=== PATIENT | male | born 1990 | race Caucasian/White ===

== ENCOUNTER 2017-01-06 13:43 | Emergency (ER) | payer BC ==
[2017-01-06] MEDS ORDERED: Ibuprofen TAB* 800 MG PO ONE (18:34)
--- NOTE | 2017-01-06 18:48 | ED ---
Lower Extremity - HPI Summary HPI Summary: Pt here w/ Lt foot pain. Believes he injured it last night while intoxicated - vaguely recalls something happening to it but ot quite sure of mechanism. "Passed out" last night and noticed pain upon waking this morning. Pain w/ weight bearing - red, swollen. Denies ankle pain, toe pain and no other injuries or areas of pain to report. Denies numbness, tingling, weakness. Has not tried anything for pain prior to arrival. - History of Current Complaint Chief Complaint: EDExtremityLower Stated Complaint: LT FOOT INJURY Time Seen by Provider: 01/06/17 18:20 Hx Obtained From: Patient Pain Intensity: 10 - Allergies/Home Medications Allergies/Adverse Reactions: Allergies Allergy/AdvReac Type Severity Reaction Status Date / Time No Known Allergies Allergy Verified 01/06/17 18:41 PMH/Surg Hx/FS Hx/Imm Hx Previously Healthy: Yes Endocrine/Hematology History: Denies: Hx Anticoagulant Therapy, Hx Blood Disorders Musculoskeletal History: Denies: Hx Gout, Hx Orthopedic Injury, Hx Osteoporosis, Hx Tendonitis, Hx of Fracture(s) Infectious Disease History: No Infectious Disease History: Denies: Traveled Outside the [place] in Last 30 Days - Family History Known Family History: Positive: Cardiac Disease - Social History Occupation: Employed Full-time Lives: With Family - roommate Alcohol Use: Weekly Hx Substance Use: No Substance Use Type: Reports: None Hx Tobacco Use: Yes Smoking Status (MU): Current Every Day Smoker Amount Used/How Often: 1PPD Review of Systems Constitutional: Negative Negative: Fever, Chills Negative: Chest Pain Negative: Shortness Of Breath Negative: Vomiting, Nausea Positive: no symptoms reported Musculoskeletal: Other - see HPI Positive: Bruising - see HPI Neurological: Negative Psychological: Normal All Other Systems Reviewed And Are Negative: Yes Physical Exam Triage Information Reviewed: Yes Vital Signs On Initial Exam: Initial Vitals Temp Pulse Resp BP Pulse Ox 98.6 F 96 18 129/92 97 01/06/17 13:58 01/06/17 13:58 01/06/17 13:58 01/06/17 13:58 01/06/17 13:58 Vital Signs Reviewed: Yes Appearance: Positive: Well-Appearing, Well-Nourished, Pain Distress - mild at rest - worse w/ movement Skin: Positive: Warm, Dry - erythema/ecchymosis over Lt medial/instep of foot and dorsal aspect Eyes: Positive: EOMI ENT: Positive: Hearing grossly normal Respiratory/Lung Sounds: Positive: Breath Sounds Present Cardiovascular: Positive: Normal, Pulses are Symmetrical in both Upper and Lower Extremities Musculoskeletal: Positive: Strength/ROM Intact - ankle, knee, hip w/o pain, restriction, Limited @ - can move toes but hurts, Pain @ - Lt foot TTP over erythema and edema along medial and dorsal aspects of foot Neurological: Positive: Normal, Sensory/Motor Intact, Alert, Oriented to Person Place, Time, CN Intact II-III Psychiatric: Positive: Normal Diagnostics - Vital Signs Vital Signs Temp Pulse Resp BP Pulse Ox 01/06/17 17:54 98.6 F 92 18 124/88 99 01/06/17 15:30 98.6 F 92 18 124/88 99 01/06/17 13:58 98.6 F 96 18 129/92 97 - Laboratory Lab Statement: Any lab studies that have been ordered have been reviewed, and results considered in the medical decision making process. Lower Extremity Course/Dx - Diagnoses Provider Diagnoses: Sprain of left foot, Contusion of left foot Discharge - Discharge Plan Condition: Stable Disposition: HOME Patient Education Materials: Foot Sprain (ED), Contusion in Adults (ED), Crutch Instructions (ED) Referrals: [facility] [place] [facility] [Outside] Additional Instructions: Rest, ice, compression with HERSON wrap and elevation Use crutches to avoid weight bearing until tolerated You may take ibuprofen 600mg every 6 hours with food as needed for pain, swelling. Follow-up with PCP in 1-2 weeks if pain persists
--- NOTE | 2017-01-06 19:08 | RAD ---
HISTORY: Left foot injury, pain, swelling and redness COMPARISONS: None VIEWS: 3, Frontal, lateral, and oblique views of the left foot FINDINGS: BONE DENSITY: Normal. BONES: There is no displaced fracture. JOINTS: There is no arthropathy. ALIGNMENT: There is no dislocation. SOFT TISSUES: There is soft tissue swelling medially OTHER FINDINGS: None. IMPRESSION: SOFT TISSUE SWELLING. NO ACUTE OSSEOUS INJURY. IF SYMPTOMS PERSIST, RECOMMEND REPEAT IMAGING.
[2017-01-06 19:57] VITALS: BP 146/79
== END 2017-01-06 19:56 | disposition home or self-care (01) ==
LOC: ED 13:43
DX: S93.602A Unspecified sprain of left foot, initial encounter (principal); S90.32XA Contusion of left foot, initial encounter; M79.672 Pain in left foot; X58.XXXA Exposure to other specified factors, initial encounter; Y93.9 Activity, unspecified; Y92.9 Unspecified place or not applicable; F17.210 Nicotine dependence, cigarettes, uncomplicated
CPT/HCPCS: 99282; A9270-GY